=== PATIENT | female | born 1950 | race Caucasian/White ===

== ENCOUNTER 2017-04-07 10:55 | Emergency (ER) | payer OTHER, BC ==
[~2017-04-07] VITALS: Ht 157.5 cm; Wt 80.5 kg
[~2017-04-07 10:55] MED LIST: ALBUTEROL17 GM IH; BENICAR HCT1 TABLET PO; LANTUS100 UNIT/1 SQ; LEVOTHYROXINE100 MCG PO; LIPITOR20 MG PO; NOVOLIN R100 UNIT/1 SC; PRILOSEC20 MG PO; SAVELLA50 MG PO; SINGULAIR10 MG PO; TYLENOL EXTRA500 MG PO
[2017-04-07] MEDS ORDERED: ERYTHROMYCIN O3.5 GM RIGHT EYE (14:14)
[2017-04-07 14:27] VITALS: BP 107/70
== END 2017-04-07 14:36 | disposition home or self-care (01) ==
LOC: EME 10:55
DX: H00.011 Hordeolum externum right upper eyelid (principal); J06.9 Acute upper respiratory infection, unspecified; E11.9 Type 2 diabetes mellitus without complications; J44.9 Chronic obstructive pulmonary disease, unspecified
CPT/HCPCS: 99281; 99284